=== PATIENT | female | born 1955 | race Caucasian/White ===

== ENCOUNTER 2021-06-30 00:50 | Inpatient (IN) ==
[2021-06-30] MEDS ORDERED: Melatonin 3 MG TABLET PO PRN ×2 (03:17→15:08)
[2021-06-30] MEDS ORDERED: Naloxone 0.4 MG/ML INJ IVP PRN ×2 (03:17→15:08)
[2021-06-30] MEDS ORDERED: 0.9 % Sodium Chloride 1,000 ML IVC SCH (04:30)
[2021-06-30 05:27] LABS: Basophils % 0.3 %; Eosinophils # 0.2 K/mcL (0.0-0.6); Eosinophils % 2.2 %; Hemoglobin 10.5 g/dL (11.5-15.4); Immature Granulocytes % 0.5 % (0-4); Lymphocytes # 0.7 K/mcL (0.6-4.6); Lymphocytes % 8.6 %; Mean Corpuscular HGB Conc 32.8 g/dL (31.6-35.5); Mean Corpuscular Hemoglobin 30.3 pg (28.0-33.3); Mean Corpuscular Volume 92.5 fL (83.0-100.0); Mean Platelet Volume 9.9 fL (9.4-12.4); Monocytes # 0.4 K/mcL (0.0-1.3); Monocytes % 5.8 %; Neutrophils # 6.3 K/mcL (1.6-8.9); Platelet Count 217 K/mcL (140-400); Red Blood Count 3.46 M/mcL (3.82-4.97); Red Cell Distribution Width 15.1 % (11.5-14.5); Segmented Neutrophils % 82.6 %; White Blood Count 7.6 K/mcL (4.3-11.1)
[2021-06-30 05:33] LABS: INR 1.3; Prothrombin Time 14.1 Seconds (9.4-12.1)
[2021-06-30 05:40] LABS: BUN/Creatinine Ratio 12 (6-26); Blood Urea Nitrogen 11 mg/dL (8-23); Calcium 8.9 mg/dL (8.6-10.3); Carbon Dioxide 25 mEq/L (23-29); Chloride 105 mEq/L (98-107); Glucose 88 mg/dL (70-105); Magnesium 1.6 mg/dL (1.6-2.6); Osmolality,Calculated 281 (280-300); Phosphorous 3.2 mg/dL (2.7-4.5); Potassium 3.7 mEq/L (3.5-5.1); Sodium 136 mEq/L (136-145); eGFR For African Americans > 60 (> 60); eGFR For Non-African Americans > 60 (> 60)
[2021-06-30] MEDS: Ipratropium/Albuterol Neb 3 ML IH SCH ×5 (07:31→19:43)
[2021-06-30] MEDS ORDERED: amLODIPine 5 MG TABLET PO SCH (09:00)
[2021-06-30] MEDS ORDERED: Budesonide/Formoterol 160/4.5 1 PUFF INH IH SCH (10:00)
[2021-06-30] MEDS ORDERED: Famotidine 20 MG/2 ML VIAL IVP ONE (10:43)
[2021-06-30] MEDS ORDERED: Acetaminophen IV 1,000 MG/100 ML BAG IVPB ONE (10:43)
[2021-06-30] MEDS ORDERED: Albuterol 2.5 MG/3 ML NEBULIZER IH ONE (10:44)
[2021-06-30] MEDS ORDERED: CeFAZolin Syr 2,000MG/20 ML 2,000 MG/20 ML SYRINGE IVPB ONE (10:45)
[2021-06-30] MEDS ORDERED: *HR* OxyCODONE Immed Rel 5 MG TABLET PO PRN ×2 (11:11→15:08)
[2021-06-30] MEDS ORDERED: Ondansetron 4 MG/2 ML VIAL IVP PRN (11:11)
[2021-06-30] MEDS ORDERED: *HR* FentaNYL (PF) 100 MCG/2 ML VIAL ONE (11:18)
[2021-06-30] MEDS ORDERED: *HR* Propofol 200 MG/20 ML VIAL IVP ONE (11:19)
[2021-06-30] MEDS ORDERED: Lidocaine HCL 4 ML Topical Solution (Laryng-O-Jet Kit Sterile Pak) TP ONE (11:19)
[2021-06-30] MEDS ORDERED: Lidocaine -MPF 2% 2 ML VIAL ONE (11:20)
[2021-06-30] MEDS ORDERED: *HR* Succinylcholine 200 MG/10 ML VIAL IVP ONE (11:21)
[2021-06-30] MEDS ORDERED: Tranexamic Acid 1,000 MG/10 ML VIAL ONE (12:10)
[2021-06-30] MEDS ORDERED: Ondansetron 4 MG/2 ML VIAL ONE (12:10)
[2021-06-30] MEDS ORDERED: EPHEDrine 50 MG/ML VIAL ONE (12:11)
[2021-06-30] MEDS ORDERED: Lidocaine 1% 20 ML MDV ONE (12:36)
[2021-06-30] MEDS ORDERED: Ketamine HCL *QUVA* 50mg (1mL) SYRINGE ONE (12:50)
[2021-06-30] MEDS ORDERED: Ketorolac 30 MG/ML VIAL IVP PRN (15:08)
[2021-06-30] MEDS: Ondansetron 4 MG/2 ML VIAL IVP PRN (17:29)
[2021-06-30] MEDS: Budesonide/Formoterol 160/4.5 1 PUFF INH IH SCH (19:46)
[2021-06-30] MEDS: CeFAZolin 2 GM/120 ML BAG IVPB SCH (19:49)
[2021-07-01] MEDS: Ipratropium/Albuterol Neb 3 ML IH SCH ×4 (03:49→19:57)
[2021-07-01] MEDS: CeFAZolin 2 GM/120 ML BAG IVPB SCH (05:09)
[2021-07-01] MEDS: amLODIPine 5 MG TABLET PO SCH (09:35)
[2021-07-01] MEDS: Budesonide/Formoterol 160/4.5 1 PUFF INH IH SCH ×2 (11:55→19:57)
[2021-07-02] MEDS: Ipratropium/Albuterol Neb 3 ML IH SCH ×4 (03:56→20:37)
[2021-07-02 03:58] LABS: Basophils % 0.2 %; Eosinophils # 0.1 K/mcL (0.0-0.6); Eosinophils % 1.4 %; Hematocrit 28.9 % (35.3-44.9); Hemoglobin 9.1 g/dL (11.5-15.4); Immature Granulocytes % 0.2 % (0-4); Lymphocytes # 1.1 K/mcL (0.6-4.6); Lymphocytes % 12.5 %; Mean Corpuscular HGB Conc 31.5 g/dL (31.6-35.5); Mean Corpuscular Hemoglobin 29.7 pg (28.0-33.3); Mean Corpuscular Volume 94.4 fL (83.0-100.0); Monocytes # 0.4 K/mcL (0.0-1.3); Neutrophils # 7.1 K/mcL (1.6-8.9); Platelet Count 205 K/mcL (140-400); Red Blood Count 3.06 M/mcL (3.82-4.97); Red Cell Distribution Width 15.5 % (11.5-14.5); Segmented Neutrophils % 80.7 %; White Blood Count 8.8 K/mcL (4.3-11.1)
[2021-07-02] MEDS: Budesonide/Formoterol 160/4.5 1 PUFF INH IH SCH ×2 (07:41→22:00)
[2021-07-02] MEDS: amLODIPine 5 MG TABLET PO SCH (09:22)
[2021-07-03] MEDS: Ipratropium/Albuterol Neb 3 ML IH SCH ×4 (04:35→20:59)
[2021-07-03] MEDS: Budesonide/Formoterol 160/4.5 1 PUFF INH IH SCH ×2 (07:38→21:01)
[2021-07-03] MEDS: amLODIPine 5 MG TABLET PO SCH (10:22)
[2021-07-04] MEDS: Ipratropium/Albuterol Neb 3 ML IH SCH ×4 (05:04→19:33)
[2021-07-04] MEDS: Budesonide/Formoterol 160/4.5 1 PUFF INH IH SCH ×2 (07:38→19:33)
[2021-07-04] MEDS: amLODIPine 5 MG TABLET PO SCH (08:00)
[2021-07-04] MEDS: *HR* Enoxaparin 40 MG/0.4 ML SYRINGE SQ SCH (13:36)
[2021-07-04 14:21] LABS: Basophils % 0.2 %; Eosinophils # 0.2 K/mcL (0.0-0.6); Eosinophils % 3.2 %; Hematocrit 29.6 % (35.3-44.9); Hemoglobin 9.5 g/dL (11.5-15.4); Immature Granulocytes % 0.4 % (0-4); Lymphocytes # 0.7 K/mcL (0.6-4.6); Lymphocytes % 13.4 %; Mean Corpuscular HGB Conc 32.1 g/dL (31.6-35.5); Mean Corpuscular Hemoglobin 30.3 pg (28.0-33.3); Mean Corpuscular Volume 94.3 fL (83.0-100.0); Mean Platelet Volume 9.5 fL (9.4-12.4); Monocytes # 0.3 K/mcL (0.0-1.3); Monocytes % 6.2 %; Neutrophils # 4.1 K/mcL (1.6-8.9); Platelet Count 219 K/mcL (140-400); Red Blood Count 3.14 M/mcL (3.82-4.97); Red Cell Distribution Width 15.2 % (11.5-14.5); Segmented Neutrophils % 76.6 %; White Blood Count 5.3 K/mcL (4.3-11.1)
[2021-07-05] MEDS: Ipratropium/Albuterol Neb 3 ML IH SCH ×3 (02:42→15:24)
[2021-07-05] MEDS: *HR* Enoxaparin 40 MG/0.4 ML SYRINGE SQ SCH (05:37)
[2021-07-05] MEDS: amLODIPine 5 MG TABLET PO SCH (08:56)
[2021-07-05] MEDS: Budesonide/Formoterol 160/4.5 1 PUFF INH IH SCH (09:23)
[2021-07-05 11:01] VITALS: TEMP 98.2
[2021-07-05 13:06] LABS: Influenza A PCR Negative (Negative); Influenza B PCR Negative (Negative); Resp. Syncytial Virus PCR Negative (Negative)
[2021-07-05 13:29] LABS: SARS-CoV-2 by PCR (In House) Negative (Negative)
[2021-07-05 15:04] VITALS: BP 103/75; PULSE 88; O2SAT 98
[2021-07-05] MEDS: Ondansetron 4 MG/2 ML VIAL IVP PRN (15:57)
== END 2021-07-05 18:00 | DRG 481 ==
LOC: 4WAOSI
PROVIDERS: ADMIT Student in an Organized Health Care Education/Training Program; ATTEND Student in an Organized Health Care Education/Training Program